=== PATIENT | male | born 1950 | race Caucasian/White ===

== ENCOUNTER 2018-09-24 04:09 | Inpatient (IN) | payer OTHER, MEDICARE ==
[~2018-09-24] VITALS: Ht 167.6 cm; Wt 70.0 kg
[2018-09-24] VITALS (36 sets, daily range): BP systolic 115–143; BP diastolic 63–118
[2018-09-24 05:30] LABS: BASOPHILS % 0.3 % (0.0-2.0); EOSINOPHILS % 0.1 % (0.0-5.0); HEMATOCRIT. 41.7 % (42.0-52.0); HEMOGLOBIN. 14.4 g/dL (14.0-18.0); LYMPHOCYTES % 11.2 % (20.0-50.0); MEAN CORPUSCULAR HEMOGLOBIN 30.7 pg (28.0-32.0); MEAN CORPUSCULAR VOLUME 88.7 fL (80.0-94.0); MEAN PLATELET VOLUME 8.8 fl (7.4-10.4); MONOCYTES % 8.1 % (2.0-8.0); NEUTROPHILS % 80.3 % (40.0-76.0); PLATELET 167 x1000/uL (130-400); RED CELL DISTRIBUTION WIDTH 13.2 % (11.6-14.6)
[2018-09-24 05:32] LABS: CHLORIDE 98 mEq/L (98-107)
[2018-09-24] MEDS ORDERED: IBUPROFEN 400MG TABLET PO ONE (06:30)
[2018-09-24] MEDS ORDERED: NICARDIPINE 100 MG in SODIUM CHLORIDE 0.9% 60 ML IV STA ×2 (07:05→07:27)
[2018-09-24] MEDS ORDERED: LEVETIRACETAM 500MG PREMIX 100 ML IV ONE (07:15)
[2018-09-24] MEDS ORDERED: NICARDIPINE 100 MG in SODIUM CHLORIDE 0.9% 60 ML IV PRN (07:30)
[2018-09-24] MEDS ORDERED: ONDANSETRON HCL 4MG/2ML INJ IV ONE (07:30)
[2018-09-24] MEDS ORDERED: MORPHINE SULFATE 4 MG/ML CPJ (NOT FOR IM USE) IV STA (08:50)
[2018-09-24] MEDS ORDERED: ONDANSETRON HCL 4MG/2ML INJ IV STA (08:50)
[2018-09-24] MEDS ORDERED: CLONIDINE 0.1MG TABLET PO PRN (09:30)
[2018-09-24] MEDS ORDERED: NITROGLYCERIN 0.4MG TABLET SL SL PRN (09:30)
[2018-09-24] MEDS ORDERED: IPRATROPIUM/ALBUTEROL 0.5-3(2.5)MG/3ML NEB INH PRN (09:30)
[2018-09-24] MEDS ORDERED: DOCUSATE SODIUM 100MG CAPSULE PO PRN (09:30)
[2018-09-24] MEDS ORDERED: ONDANSETRON HCL 4MG/2ML INJ IV PRN (09:30)
[2018-09-24] MEDS: DEXT 5%/LACTATED RINGERS 1,000 ML IV SCH (10:45)
[2018-09-24] MEDS: PANTOPRAZOLE SODIUM 40 MG/VIAL IV SCH (10:46)
[2018-09-24] MEDS ORDERED: INFLUENZA VIRUS VACCINE(AFLURIA) 0.5ML SYR IM ONE (13:15)
[2018-09-24] MEDS ORDERED: PNEUMOCOCCAL 23-VAL P-SAC VAC 0.5 ML IM ONE (13:15)
[2018-09-24] MEDS: HYDROMORPHONE HCL/PF 2MG/ML CPJ IV PRN (15:45)
[2018-09-24] MEDS ORDERED: DEXTROSE 50% WATER 50ML SYRINGE IV PRN (16:45)
[2018-09-24] MEDS: INSULIN LISPRO 100 UNITS/ML SUBCUT SCH ×2 (17:00→21:28)
[2018-09-24] MEDS ORDERED: LEVETIRACETAM 500MG PREMIX 100 ML IV SCH (21:00)
[2018-09-24] MEDS: BLOOD SUGAR DIAGNOSTIC STRIP TEST SCH (21:09)
[2018-09-24] MEDS: LEVETIRACETAM 500MG in SODIUM CHLORIDE 0.9% 100ML IV SCH (21:27)
[2018-09-24] MEDS: INSULIN GLARGINE UD 100 UNITS/ML SYR SUBCUT SCH (21:28)
[2018-09-25] VITALS (45 sets, daily range): BP systolic 112–149; BP diastolic 36–88
[2018-09-25] MEDS: DEXT 5%/LACTATED RINGERS 1,000 ML IV SCH ×2 (00:25→13:10)
[2018-09-25] MEDS: HYDROMORPHONE HCL/PF 2MG/ML CPJ IV PRN ×3 (04:55→22:06)
[2018-09-25] MEDS: BLOOD SUGAR DIAGNOSTIC STRIP TEST SCH ×4 (06:24→21:00)
[2018-09-25] MEDS: INSULIN LISPRO 100 UNITS/ML SUBCUT SCH ×4 (06:28→22:49)
[2018-09-25] MEDS: LEVETIRACETAM 500MG in SODIUM CHLORIDE 0.9% 100ML IV SCH ×2 (09:08→22:06)
[2018-09-25] MEDS: PANTOPRAZOLE SODIUM 40 MG/VIAL IV SCH (09:08)
[2018-09-25] MEDS ORDERED: ZINC SULF/CUSO4 P-HYD/MANG/CR 10 ML VIAL IV SCH (13:45)
[2018-09-25] MEDS: THIAMINE HCL 100 MG/1 ML 2ML VIAL IM SCH (15:25)
[2018-09-25] MEDS: DEXAMETHASONE 4MG/ML 1ML VIAL IV SCH (19:57)
[2018-09-25 20:06] LABS: CLARITY URINE CLOUDY (CLEAR); COLOR URINE DARK YELLOW (YELLOW); KETONES URINE 1+ (NEGATIVE); LEUKOCYTE ESTERASE URINE NEGATIVE (NEGATIVE); NITRITE URINE NEGATIVE (NEGATIVE); OCCULT BLOOD URINE NEGATIVE (NEGATIVE); PROTEIN URINE NEGATIVE (NEGATIVE); SPECIFIC GRAVITY URINE 1.029 (1.005-1.030); UROBILINOGEN URINE 0.2 E.U./dL (0.2-1.0)
[2018-09-25 20:43] LABS: *AMPHETAMINES SCREEN URINE NEGATIVE (NEGATIVE); *BARBITURATES SCREEN URINE NEGATIVE (NEGATIVE); *BENZODIAZEPINES SCREEN URINE NEGATIVE (NEGATIVE); *COCAINE SCREEN URINE NEGATIVE (NEGATIVE); CANNABINOID URINE SCREEN NEGATIVE (NEGATIVE); METHADONE URINE SCREEN NEGATIVE (NEGATIVE); OPIATES URINE SCREEN PRESUMTIVE POSITIVE (NEGATIVE); PHENCYCLIDINE URINE SCREEN NEGATIVE (NEGATIVE)
[2018-09-25] MEDS: NEOMY SULF/BACITRAC ZN/POLY OINT 28GM TOP SCH (22:36)
[2018-09-25] MEDS: INSULIN GLARGINE UD 100 UNITS/ML SYR SUBCUT SCH (22:47)
[2018-09-25] MEDS ORDERED: INFLUENZA VIRUS VACCINE(AFLURIA) 0.5ML SYR IM ONE (23:30)
[2018-09-26] VITALS (7 sets, daily range): BP systolic 114–127; BP diastolic 72–83
[2018-09-26] MEDS: DEXAMETHASONE 4MG/ML 1ML VIAL IV SCH ×4 (00:08→17:46)
[2018-09-26] MEDS: DEXT 5%/LACTATED RINGERS 1,000 ML IV SCH ×2 (02:42→17:47)
[2018-09-26] MEDS: ACETAMINOPHEN 325MG TABLET PO PRN ×2 (02:54→09:29)
[2018-09-26] MEDS: BLOOD SUGAR DIAGNOSTIC STRIP TEST SCH ×4 (06:42→20:22)
[2018-09-26] MEDS: INSULIN LISPRO 100 UNITS/ML SUBCUT SCH ×4 (07:50→20:34)
[2018-09-26] MEDS: PANTOPRAZOLE SODIUM 40 MG/VIAL IV SCH (09:29)
[2018-09-26] MEDS: NEOMY SULF/BACITRAC ZN/POLY OINT 28GM TOP SCH (09:30)
[2018-09-26] MEDS: THIAMINE HCL 100 MG/1 ML 2ML VIAL IM SCH (09:30)
[2018-09-26] MEDS: LEVETIRACETAM 500MG in SODIUM CHLORIDE 0.9% 100ML IV SCH ×2 (09:30→20:31)
[2018-09-26] MEDS: ATORVASTATIN CALCIUM 20MG TABLET PO SCH (20:22)
[2018-09-26] MEDS: INSULIN GLARGINE UD 100 UNITS/ML SYR SUBCUT SCH (22:09)
[2018-09-27] MEDS: NEOMY SULF/BACITRAC ZN/POLY OINT 28GM TOP SCH ×3 (01:07→21:10)
[2018-09-27] MEDS: DEXAMETHASONE 4MG/ML 1ML VIAL IV SCH ×5 (01:08→23:42)
[2018-09-27] MEDS: HYDROMORPHONE HCL/PF 2MG/ML CPJ IV PRN (01:09)
[2018-09-27 04:00] VITALS: BP 119/77
[2018-09-27] MEDS: DEXT 5%/LACTATED RINGERS 1,000 ML IV SCH ×2 (05:04→17:30)
[2018-09-27] MEDS: ACETAMINOPHEN 325MG TABLET PO PRN (06:02)
[2018-09-27] MEDS: BLOOD SUGAR DIAGNOSTIC STRIP TEST SCH ×4 (06:14→20:46)
[2018-09-27 08:00] VITALS: BP 126/70
[2018-09-27] MEDS: LEVETIRACETAM 500MG in SODIUM CHLORIDE 0.9% 100ML IV SCH ×2 (09:08→21:06)
[2018-09-27] MEDS: THIAMINE HCL 100 MG/1 ML 2ML VIAL IM SCH (09:09)
[2018-09-27] MEDS: FAMOTIDINE 20MG/2ML VIAL IV SCH ×2 (09:09→20:56)
[2018-09-27] MEDS: INSULIN LISPRO 100 UNITS/ML SUBCUT SCH ×4 (09:16→21:08)
[2018-09-27 12:00] VITALS: BP 114/72
[2018-09-27 16:00] VITALS: BP 120/77
[2018-09-27 20:00] VITALS: BP 107/68
[2018-09-27] MEDS: ATORVASTATIN CALCIUM 20MG TABLET PO SCH (21:06)
[2018-09-27] MEDS: INSULIN GLARGINE UD 100 UNITS/ML SYR SUBCUT SCH (21:10)
[2018-09-27 23:59] VITALS: BP 106/68
[2018-09-28 03:56] VITALS: BP 113/70
[2018-09-28] MEDS: DEXAMETHASONE 4MG/ML 1ML VIAL IV SCH ×4 (05:20→23:57)
[2018-09-28] MEDS: BLOOD SUGAR DIAGNOSTIC STRIP TEST SCH ×4 (07:30→20:54)
[2018-09-28] MEDS: DEXT 5%/LACTATED RINGERS 1,000 ML IV SCH ×2 (07:30→22:44)
[2018-09-28 07:52] VITALS: BP 124/73
[2018-09-28] MEDS: NEOMY SULF/BACITRAC ZN/POLY OINT 28GM TOP SCH ×2 (09:41→22:40)
[2018-09-28] MEDS: THIAMINE HCL 100 MG/1 ML 2ML VIAL IM SCH (09:41)
[2018-09-28] MEDS: LEVETIRACETAM 500MG in SODIUM CHLORIDE 0.9% 100ML IV SCH ×2 (09:41→21:00)
[2018-09-28] MEDS: FAMOTIDINE 20MG/2ML VIAL IV SCH ×2 (09:41→21:00)
[2018-09-28] MEDS: INSULIN LISPRO 100 UNITS/ML SUBCUT SCH ×4 (09:50→21:00)
[2018-09-28 11:41] VITALS: BP 121/79
[2018-09-28 15:55] VITALS: BP 125/72
[2018-09-28 20:43] VITALS: BP 114/68
[2018-09-28] MEDS: ATORVASTATIN CALCIUM 20MG TABLET PO SCH (21:00)
[2018-09-28] MEDS: INSULIN GLARGINE UD 100 UNITS/ML SYR SUBCUT SCH (22:43)
[2018-09-29 00:32] VITALS: BP 121/78
[2018-09-29 04:00] VITALS: BP 122/76
[2018-09-29] MEDS: BLOOD SUGAR DIAGNOSTIC STRIP TEST SCH ×3 (06:28→17:57)
[2018-09-29 08:00] VITALS: BP 109/68
[2018-09-29] MEDS: THIAMINE HCL 100 MG/1 ML 2ML VIAL IM SCH (08:22)
[2018-09-29] MEDS: FAMOTIDINE 20MG/2ML VIAL IV SCH (08:22)
[2018-09-29] MEDS: NEOMY SULF/BACITRAC ZN/POLY OINT 28GM TOP SCH (08:22)
[2018-09-29] MEDS: DEXT 5%/LACTATED RINGERS 1,000 ML IV SCH (08:23)
[2018-09-29] MEDS: INSULIN LISPRO 100 UNITS/ML SUBCUT SCH ×3 (08:31→18:46)
[2018-09-29] MEDS: DEXAMETHASONE 4MG/ML 1ML VIAL IV SCH ×3 (10:08→18:48)
[2018-09-29] MEDS: LEVETIRACETAM 500MG in SODIUM CHLORIDE 0.9% 100ML IV SCH (10:08)
[2018-09-29 20:40] VITALS: BP 117/70
[2018-09-29 21:15] VITALS: BP 117/70
== END 2018-09-29 23:00 | disposition short-term general hospital (02) | DRG 83 ==
LOC: ER 04:30 → MICUSO 07:57 → EDBEDREQTM 07:59 → EDBEDREQ 07:59 → ENRESERV 09:01 → 6WST 09-26 00:57
PROVIDERS: ADMIT Internal Medicine; ATTEND Internal Medicine
DX: S06.5X9A Traumatic subdural hemorrhage with loss of consciousness of unspecified duration, initial encounter (principal); G93.40 Encephalopathy, unspecified; G95.20 Unspecified cord compression; E11.65 Type 2 diabetes mellitus with hyperglycemia; I10 Essential (primary) hypertension; M48.02 Spinal stenosis, cervical region; E78.00 Pure hypercholesterolemia, unspecified; W01.190A Fall on same level from slipping, tripping and stumbling with subsequent striking against furniture, initial encounter; F10.20 Alcohol dependence, uncomplicated; E78.5 Hyperlipidemia, unspecified; Z79.4 Long term (current) use of insulin; M19.90 Unspecified osteoarthritis, unspecified site; S80.812A Abrasion, left lower leg, initial encounter; S80.811A Abrasion, right lower leg, initial encounter; W18.39XA Other fall on same level, initial encounter; Y93.89 Activity, other specified; Y92.89 Other specified places as the place of occurrence of the external cause; Y99.8 Other external cause status; S01.01XA Laceration without foreign body of scalp, initial encounter
CPT/HCPCS: 36415; 70486; 71045; 72141; 80061; 80305; 82140; 82693; 82962; 83036; 83880; 84484; 90686; 90732; 93005; 93970; 96365; 99291; C9113; J1100; J1170; J1815; J1953; J2405; J3411; J3490; J7040; J7050; L0172